=== PATIENT | male | born 1975 | race African-American/Black ===

== ENCOUNTER 2023-06-02 08:43 | Emergency (ER) | payer BC ==
[2023-06-02] MEDS ORDERED: Morphine 4 MG/ML VIAL ONE (09:02)
[2023-06-02] MEDS ORDERED: Ondansetron PF 4 MG/2 ML Vial ONE (09:02)
[2023-06-02 09:11] LABS: #Basophils 0.04 10x3/uL (0.0-0.2); #Eosinphils 0.09 10x3/uL (0.0-0.5); #Monocytes 0.63 10x3/uL (0.0-1.1); #Neutrophils 5.39 10x3/uL (1.5-8.4); %Basophils 0.5 % (0.0-2.0); %Eosinophils 1.1 % (0.0-6.0); %Lymphocytes 27.6 % (18.0-47.0); %Monocytes 7.4 % (0.0-10.0); %Neutrophils 63.2 % (40.0-75.0); Hematocrit 49.4 % (38.8-50.0); Mean Corpuscular HGB CONC 34.4 g/dL (32.0-36.0); Mean Corpuscular Hemoglobin 30.3 pg (27.0-33.0); Mean Corpuscular Volume 88.1 fl (81.2-95.1); Mean Platelet Volume 10.6 fl (7.4-10.4); Platelet Count 282 10x3/uL (150-450); RBC Distribution Width 11.7 % (11.5-14.5); Red Blood Cell (RBC) Count 5.61 10x6/uL (4.32-5.72); White Blood Cell (WBC) Count 8.5 10x3/uL (3.5-10.5)
[2023-06-02 09:27] LABS: ALT (SGPT) 19 U/L (8-55); AST (SGOT) 19 U/L (5-34); Albumin 4.1 g/dL (3.5-5.0); Alkaline Phosphatase 42 U/L (40-110); Anion Gap 15 mmol/L (10-20); BUN (Urea Nitrogen) 10 mg/dL (8.9-20.6); Bilirubin, Total 1.3 mg/dL (0.2-1.2); Calc. Creatinine Clearance 0 mL/min (70-130); Calcium 11.9 mg/dL (7.8-10.44); Carbon Dioxide 26 mmol/L (22-29); Chloride 100 mmol/L (98-107); Estimated GFR 70; Globulin 3.7 g/dL (2.4-3.5); Glucose 118 mg/dL (70-105); Lipase 18 U/L (8-78); Magnesium 1.6 mg/dL (1.6-2.6); Potassium 3.9 mmol/L (3.5-5.1); Protein, Total 7.8 g/dL (6.0-8.3); Sodium 137 mmol/L (136-145)
[2023-06-02] MEDS ORDERED: Iopamidol 300 61% 100 ML VIAL FS ONE (10:21)
== END 2023-06-02 10:00 | disposition home or self-care (01) ==
LOC: CSHERS 08:43
DX: K52.9 Noninfective gastroenteritis and colitis, unspecified (principal); I10 Essential (primary) hypertension
CPT/HCPCS: 74177; 80053; 83690; 83735; 85025; 93005; 96361; 96374; 96375; J2270; J2405